=== PATIENT | male | born 1975 | race Caucasian/White ===

== ENCOUNTER 2017-12-22 06:27 | Day surgery (SDC) | payer OTHER ==
[~2017-12-22] VITALS: Ht 177.8 cm; Wt 81.6 kg
== END 2017-12-22 18:00 | disposition home or self-care (01) ==
LOC: ER 06:27 → SEC-K 14:00 → O/R 14:00 → EDBD 14:00 → O/R 14:55 → SEC-K 14:55 → CIR.AMB 15:00
DX: S62.122A Displaced fracture of lunate [semilunar], left wrist, initial encounter for closed fracture (principal); S63.512A Sprain of carpal joint of left wrist, initial encounter